=== PATIENT | female | born 1990 | race Two or more races ===

== ENCOUNTER 2025-01-01 23:14 | Emergency (ER) | payer OTHER ==
[~2025-01-01] VITALS: Ht 180.3 cm; Wt 63.5 kg
[2025-01-02] MEDS ORDERED: METOCLOPRAMIDE HCL 5 MG/ML VIAL IM STA (00:39)
[2025-01-02] MEDS ORDERED: PROMETHAZINE HCL 25 MG/ML AMPUL IM STA (00:40)
[2025-01-02] MEDS ORDERED: 0.9 % SODIUM CHLORIDE 1,000 ML IV STA (00:41)
[2025-01-02] MEDS ORDERED: HYOSCYAMINE SULFATE 0.125 MG TAB.SUBL SL STA (00:42)
[2025-01-02] MEDS ORDERED: FAMOtidine 10 MG/ML (4ML VIAL) IV PUSH STA (00:42)
[2025-01-02] MEDS ORDERED: PROMETHAZINE HCL 25 MG/ML AMPUL ONE (00:55)
[2025-01-02] MEDS ORDERED: METOCLOPRAMIDE HCL 5 MG/ML VIAL ONE (00:55)
[2025-01-02] MEDS ORDERED: HYOSCYAMINE SULFATE 0.125 MG TAB.SUBL ONE (00:55)
[2025-01-02] MEDS ORDERED: FAMOTIDINE/PF 20 MG/2 ML VIAL ONE (00:56)
[2025-01-02 01:34] LABS: HEMATOCRIT 41.5 % (36.0-45.00); HEMOGLOBIN 14.2 g/dL (12.0-15.00); MEAN CELL VOLUME 82.4 fL (80.00-100.00); MEAN CORPUSCULAR HEMOGLOBIN 28.1 pg (27.00-32.0); MEAN CORPUSCULAR HGB CONC 34.1 g/dl (32.0-36.0); PLATELET COUNT 310 K/uL (150-450); RED BLOOD COUNT 5.04 M/uL (4.00-6.00); RED CELL DISTRIBUTION WIDTH 13.7 % (11.5-14.5)
[2025-01-02 04:25] LABS: CALCIUM 8.4 mg/dL (8.5-10.1); CREATININE SERUM 0.65 mg/dL (0.55-1.02); GFR 104.97; POTASSIUM 3.57 mEq/L (3.5-5.1)
== END 2025-01-02 06:36 | disposition home or self-care (01) ==
LOC: ER 23:17
DX: K52.9 Noninfective gastroenteritis and colitis, unspecified (principal); R11.10 Vomiting, unspecified; Z88.8 Allergy status to other drugs, medicaments and biological substances

== ENCOUNTER 2025-02-14 18:29 | Emergency (ER) | payer OTHER ==
[~2025-02-14] VITALS: Ht 185.4 cm; Wt 84.4 kg
[2025-02-14] MEDS ORDERED: CEFTRIAXONE SODIUM 1,000 MG VIAL IM STA (19:29)
[2025-02-14] MEDS ORDERED: HYDROCODONE/CHLORPHEN P-STIREX 5 ML ML PO STA (19:30)
[2025-02-14] MEDS ORDERED: CEFTRIAXONE SODIUM 1,000 MG VIAL ONE (19:37)
== END 2025-02-14 20:12 | disposition home or self-care (01) ==
LOC: ER 18:30
DX: J06.9 Acute upper respiratory infection, unspecified (principal); Z88.8 Allergy status to other drugs, medicaments and biological substances